=== PATIENT | female | born 1980 | race Caucasian/White ===

== ENCOUNTER 2018-08-13 16:50 | Inpatient (IN) | payer BC ==
[2018-08-13] MEDS ORDERED: Alum-Mag Hydrox-Simethicone Susp (30 mL) PO ONE (18:14)
[2018-08-13] MEDS ORDERED: Iohexol 240 (50 ml) PO ONE (18:15)
[2018-08-13] MEDS ORDERED: Alum-Mag Hydrox-Simethicone Susp (30 mL) ONE (18:49)
[2018-08-13] MEDS ORDERED: Iohexol 240 (50 ml) ONE (18:50)
--- NOTE | 2018-08-13 19:04 | ED PDOC ---
HPI: Abdomen Time Seen by Provider: 08/13/18 17:43 Chief Complaint (Nursing): Abdominal Pain Chief Complaint (Provider): Abdominal Pain History Per: Patient History/Exam Limitations: no limitations Onset/Duration Of Symptoms: Days (x2) Current Symptoms Are (Timing): Still Present Location Of Pain/Discomfort: Epigastric Associated Symptoms: denies: Fever, Nausea, Vomiting, Diarrhea, Back Pain, Urinary Symptoms Additional Complaint(s): 37 year old female with no significant past medical history presents to the ED with constant epigastric pain onset 2 days. Last night, patient went to [facility] where she had a CT and lab work done that showed no clinically significant abnormalities. She was discharged home with Tylenol for pain. Patient came to the ED today because pain is severe. She denies any radia tion of pain, nausea, vomiting, fever, urinary symptoms or diarrhea. PMD: Kavon Past Medical History Reviewed: Historical Data, Nursing Documentation, Vital Signs Vital Signs: Last Vital Signs Temp 98.7 F 08/13/18 17:00 Pulse 98 H 08/13/18 17:00 Resp 18 08/13/18 17:00 BP 138/87 08/13/18 17:00 Pulse Ox 99 08/13/18 17:00 - Medical History PMH: No Chronic Diseases - Surgical History Other surgeries: ovarian cyst surgery - Family History Family History: States: Unknown Family Hx - Allergies Allergies/Adverse Reactions: Allergies Allergy/AdvReac Type Severity Reaction Status Date / Time No Known Allergies Allergy Verified 08/13/18 17:00 Review of Systems ROS Statement: Except As Marked, All Systems Reviewed And Found Negative Constitutional: Negative for: Fever Gastrointestinal: Positive for: Abdominal Pain (epigastric). Negative for: Nausea, Vomiting, Diarrhea Physical Exam - Reviewed Nursing Documentation Reviewed: Yes Vital Signs Reviewed: Yes - Physical Exam Appears: Positive for: Non-toxic, No Acute Distress Head Exam: Positive for: ATRAUMATIC, NORMOCEPHALIC Skin: Positive for: Normal Color, Warm, Dry Eye Exam: Positive for: Normal appearance, EOMI, PERRL Cardiovascular/Chest: Positive for: Regular Rate, Rhythm. Negative for: Murmur Respiratory: Positive for: Normal Breath Sounds. Negative for: Respiratory Distress Gastrointestinal/Abdominal: Positive for: Tenderness (epigastric and RUQ ) Extremity: Positive for: Normal ROM Neurologic/Psych: Positive for: Alert, Oriented (x3) - Laboratory Results Result Diagrams: 08/14/18 04:30 08/14/18 04:30 - ECG O2 Sat by Pulse Oximetry: 99 (RA) Pulse Ox Interpretation: Normal Medical Decision Making Medical Decision Making: Time: 1811 Initial Impression: Epigastric pain Differential diagnoses include but are not limited to: Gall bladder disease, peptic ulcer disease, acute gastritis. Initial Plan: --Gallbladder US --EKG --CMP --Lipase --Urine preg --Urine dip --CBC with differentials --Lidocaine 2% 15 ml --Maalox Plus 30 ml PO Scribe Attestation: Documented by Betty Borja, acting as a scribe for Moose Guerra MD Provider Scribe Attestation: All medical record entries made by the Scribe were at my direction and personally dictated by me. I have reviewed the chart and agree that the record accurately reflects my personal performance of the history, physical exam, medical decision making, and the department course for this patient. I have also personally directed, reviewed, and agree with the discharge instructions and disposition. Disposition - Clinical Impression Clinical Impression: Acute cholecystitis - Patient ED Disposition Is Patient to be Admitted: Transfer of Care Counseled Patient/Family Regarding: Studies Performed, Diagnosis - Disposition Disposition: Transfer of Care Disposition Time: 19:00 Condition: STABLE Patient Signed Over To: Sarah Oliver
[2018-08-13 19:24] LABS: BASO # 0.1 K/uL (0.0-0.2); BASO % 0.6 % (0.0-2.0); EOS % 0.3 % (0.0-4.0); HEMOGLOBIN 14.4 g/dL (12.0-16.0); LYMPH # 2.5 K/uL (1.0-4.3); MEAN CELL VOLUME 89.6 fl (81.0-99.0); MEAN CORPUSCULAR HEMOGLOBIN 30.4 pg (27.0-31.0); MEAN CORPUSCULAR HGB CONC 33.9 g/dL (33.0-37.0); MEAN PLATELET VOLUME 7.7 fl (7.2-11.7); MONO # 0.7 K/uL (0.0-0.8); NEUT # 8.2 K/uL (1.8-7.0); NEUT % 71.1 % (50.0-75.0); RBC 4.75 Mil/uL (3.80-5.20); RED CELL DISTRIBUTION WIDTH 14.2 % (11.5-14.5); WHITE BLOOD COUNT 11.5 K/uL (4.8-10.8)
[2018-08-13 19:34] LABS: ALB/GLOB RATIO 1.1 (1.0-2.1); ALBUMIN 4.4 g/dL (3.5-5.0); ALT/SGPT 27 U/L (9-52); AST/SGOT 27 U/L (14-36); BLOOD UREA NITROGEN 9 mg/dl (7-17); CALCIUM 10.1 mg/dL (8.4-10.2); GFR NON-AFRICAN AMERICAN > 60; LIPASE 63 U/L (23-300)
--- NOTE | 2018-08-13 19:54 | ED PDOC ---
- Laboratory Results Result Diagrams: 08/13/18 19:20 08/13/18 19:20 - ECG O2 Sat by Pulse Oximetry: 99 (RA) Pulse Ox Interpretation: Normal Medical Decision Making Medical Decision Making: Time: 1899 --Patient signed out to this provider by Dr. Guerra, pending GI workup and reevaluation. If all negative, patient can be discharged. Time: 2058 US abdomen Impression: 1. Multiple small mobile gallstones at the gallbladder neck. 2. Thickened gallbladder wall, consistent with acute cholecystitis. Time: 2126 pt aware of results, agreeable to plan --Case discussed with Dr. Jacobson who advises provider to talk to Dr. Goldsmith, surgeon, who states he will see the patient. Suggested calling the surgical dental assistant. who was called. iv abx on board, npo past midnight Scribe Attestation: Documented by Betty Borja, acting as a scribe for Sarah Oliver MD Provider Scribe Attestation: All medical record entries made by the Scribe were at my direction and personally dictated by me. I have reviewed the chart and agree that the record accurately reflects my personal performance of the history, physical exam, medical decision making, and the department course for this patient. I have also personally directed, reviewed, and agree with the discharge instructions and disposition. Disposition Counseled Patient/Family Regarding: Studies Performed, Diagnosis, Need For Followup - Clinical Impression Clinical Impression: Acute cholecystitis - POA Present On Arrival: None - Disposition Disposition: Admitted as In-Patient Disposition Time: 01:00 Condition: STABLE
[2018-08-13] MEDS ORDERED: Sodium Chloride 0.9% 1,000 ML IV STA (21:16)
[2018-08-13] MEDS ORDERED: Piperacillin/Tazobact 4.5 GM in Sodium Chloride 0.9% 100 ML IVPB STA (21:26)
--- NOTE | 2018-08-13 23:51 | CP.PCM.CON ---
Addendum entered and electronically signed by Waldemar Goldsmith DO 08/14/18 14:43: Patient examined. Agree with above findings and plan of care. TO OR for laparosc opic cholecystectomy with cholangiogram since bili increased. NPO, IV ABX, informed consent obtained. Original Note: History of Present Illness - History of Present Illness History of Present Illness: GENERAL SURGERY CONSULT NOTE FOR DR. GOLDSMITH 37F with PMHx of GERD, HTN presents to the ED with abdominal pain. The pain began yesterday at 8:30. She thought it was heartburn initially so she took Nexium without any relief. She vomited around midnight so she went to [facility] where she reportedly had a CT with IV contrast and bloodwork. She was told everything was find and discharged home. This morning, the pain continued so she went to [facility] where she was given Carafate which didn't relieve her symptoms so she came to [facility]. The pain is located in the RUQ/epigastric area. She denies diarrhea. States pain occurs a few hours after eating. PMHx: GERD, HTN (previously on metoprolol) Surgeries: laparoscopic ovarian cyst removal ALlergies: none Medications: nexium PRN Social history: denies etoh, tobacco use or illicit drug use Review of Systems - Review of Systems All systems: reviewed and no additional remarkable complaints except (as per HPI) Past Patient History - Past Social History Smoking Status: Never Smoked - MUSCULOSKELETAL/RHEUMATOLOGICAL Hx Falls: No - PSYCHIATRIC Hx Substance Use: No - SURGICAL HISTORY Hx Surgeries: Yes Other/Comment: ovarian cyst removal - ANESTHESIA Hx Anesthesia: No Hx Anesthesia Reactions: No Hx Malignant Hyperthermia: No Meds Allergies/Adverse Reactions: Allergies Allergy/AdvReac Type Severity Reaction Status Date / Time No Known Allergies Allergy Verified 08/13/18 17:00 - Medications Medications: Current Medications Lactated Ringer's (Lactated Ringer's) 1,000 mls @ 125 mls/hr IV .Q8H DAVION Piperacillin Sod/Tazobactam (Sod 3.375 gm/ Sodium Chloride) 100 mls @ 100 mls/hr IVPB Q6 DAVION; Protocol Morphine Sulfate (Morphine) 4 mg IVP Q4 PRN PRN Reason: Pain, moderate (4-7) Ondansetron HCl (Zofran Inj) 4 mg IVP Q4 PRN PRN Reason: Nausea/Vomiting Physical Exam - Constitutional Appears: Non-toxic, No Acute Distress - Head Exam Head Exam: ATRAUMATIC, NORMAL INSPECTION - Eye Exam Eye Exam: EOMI, Normal appearance - Respiratory Exam Respiratory Exam: NORMAL BREATHING PATTERN. absent: Respiratory Distress - Cardiovascular Exam Cardiovascular Exam: +S1, +S2 - GI/Abdominal Exam GI & Abdominal Exam: Soft, Tenderness (tender in RUQ>epigastric). absent: Distended, Firm, Guarding, Rebound, Rigid Additional comments: +[place] sign - Neurological Exam Neurological exam: Alert, CN II-XII Intact, Oriented x3 - Psychiatric Exam Psychiatric exam: Normal Affect, Normal Mood - Skin Skin Exam: Dry, Normal Color, Warm Results - Vital Signs Recent Vital Signs: Last Vital Signs Temp 98.2 F 08/13/18 22:44 Pulse 77 08/13/18 22:44 Resp 18 08/13/18 22:44 BP 129/84 08/13/18 22:44 Pulse Ox 94 L 08/13/18 22:44 - Labs Result Diagrams: 08/13/18 19:20 08/13/18 19:20 Labs: Laboratory Results - last 24 hr 08/13/18 08/13/18 19:20 19:20 WBC 11.5 H RBC 4.75 Hgb 14.4 Hct 42.5 MCV 89.6 MCH 30.4 MCHC 33.9 RDW 14.2 Plt Count 372 MPV 7.7 Neut % (Auto) 71.1 Lymph % (Auto) 22.0 [place] % (Auto) 6.0 Eos % (Auto) 0.3 Baso % (Auto) 0.6 Neut # (Auto) 8.2 H Lymph # (Auto) 2.5 [place] # (Auto) 0.7 Eos # (Auto) 0.0 Baso # (Auto) 0.1 Sodium 139 Potassium 4.7 Chloride 99 Carbon Dioxide 31 H Anion Gap 14 BUN 9 Creatinine 0.5 L Est GFR ( Amer) > 60 Est GFR (Non-Af Amer) > 60 Random Glucose 112 H Calcium 10.1 Total Bilirubin 0.6 AST 27 ALT 27 Alkaline Phosphatase 79 Total Protein 8.4 H Albumin 4.4 Globulin 4.0 H Albumin/Globulin Ratio 1.1 Lipase 63 Assessment & Plan - Assessment and Plan (Free Text) Assessment: 37F with PMHx of GERD, HTN presents with abdominal pain, found to have symptomatic cholelithiasis/possible cholecystitis - Afebrile, VSS - WBC 11.5, bilirubin, LFTs, lipase all WNL - US: multiple small mobile gallstones at neck of gallbladder, gallbladder wall 4.18mm - Plan for OR tomorrow AM for lap anneliese - NPO past midnight - IV fluids - Zosyn - Morphine & Zofran PRN - Discussed plan with Dr. Rupal Bernardo PGY-4
[2018-08-14] MEDS: Lactated Ringer's 1,000 ML IV SCH (00:15)
[2018-08-14] MEDS: Piperacillin/Tazobact 3.375 GM in Sodium Chloride 0.9% 100 ML IVPB SCH ×4 (03:21→21:14)
[2018-08-14 05:24] LABS: BASO % 0.4 % (0.0-2.0); EOS % 0.4 % (0.0-4.0); HEMOGLOBIN 13.9 g/dL (12.0-16.0); LYMPH # 1.9 K/uL (1.0-4.3); MEAN CORPUSCULAR HEMOGLOBIN 30.4 pg (27.0-31.0); MEAN CORPUSCULAR HGB CONC 33.8 g/dL (33.0-37.0); MEAN PLATELET VOLUME 7.7 fl (7.2-11.7); MONO # 0.7 K/uL (0.0-0.8); MONO % 8.3 % (0.0-10.0); NEUT # 5.7 K/uL (1.8-7.0); NEUT % 67.9 % (50.0-75.0); RBC 4.56 Mil/uL (3.80-5.20); RED CELL DISTRIBUTION WIDTH 14.4 % (11.5-14.5); WHITE BLOOD COUNT 8.3 K/uL (4.8-10.8)
[2018-08-14 05:27] LABS: PROTHROMBIN TIME 11.3 Seconds (9.8-13.1)
[2018-08-14 05:30] LABS: PARTIAL THROMBOPLASTIN TIME 31.2 Seconds (25.6-37.1)
[2018-08-14 05:37] LABS: ALB/GLOB RATIO 1.1 (1.0-2.1); ALBUMIN 3.9 g/dL (3.5-5.0); ALT/SGPT 42 U/L (9-52); AST/SGOT 33 U/L (14-36); BLOOD UREA NITROGEN 9 mg/dl (7-17); CALCIUM 8.6 mg/dL (8.4-10.2); GFR NON-AFRICAN AMERICAN > 60
--- NOTE | 2018-08-14 07:01 | CARD ---
APPROVED REPORT Date of service: 08/13/2018 EKG Measurement Heart [id number] VT 144P-4 [id number] <Conclusion> Normal sinus rhythm Normal ECG
--- NOTE | 2018-08-14 11:48 | US ---
Date of service: 08/13/2018 HISTORY: Right upper quadrant, Epigastric pain 2 days duration COMPARISON: 01/21/2014 TECHNIQUE: Sonographic evaluation of the right upper quadrant of the abdomen. FINDINGS: LIVER: Measures 16.9 cm in length. Patent portal vein. Portal venous flow: Hepatopetal. Unremarkable echogenicity of the liver parenchyma. GALLBLADDER: Cholelithiasis, gallbladder wall edema and positive sonographic Vo's sign. COMMON BILE DUCT: Measures 4.0 mm. No stones. No dilatation. PANCREAS: Unremarkable as visualized. No mass. No ductal dilatation. RIGHT KIDNEY: Measures 5.9 x 11.6 cm in length. Normal echogenicity. No calculus, mass, or hydronephrosis. AORTA: No aneurysmal dilatation. IVC: Unremarkable. OTHER FINDINGS: None . IMPRESSION: Cholelithiasis/presumptive evidence including gallbladder wall edema and positive sonographic Vo sign for acute cholecystitis. Concordant results (preliminary interpretation) provided by [employer]. Procedure Completed: 20:03 Preliminary Report: Dictated and Authenticated: 20:59. Final Interpretation: 11:46. August 14, 2018
[2018-08-14] MEDS ORDERED: Rocuronium 10 mg/ml (5 ml) ONE (12:48)
[2018-08-14] MEDS ORDERED: Succinylcholine 200 mg/10 ml Inj IV ONE (12:48)
[2018-08-14] MEDS ORDERED: Midazolam 2 MG/2 ML VIAL ONE (12:48)
[2018-08-14] MEDS ORDERED: Propofol 10 mg/ml Inj (20 ML) ONE (12:48)
[2018-08-14] MEDS ORDERED: Lidocaine 4% (Laryng-O-Jet) Kit MM ONE (12:49)
[2018-08-14] MEDS ORDERED: Neostigmine 1:1000 (1 mg/ml) Inj ONE (12:49)
[2018-08-14] MEDS ORDERED: Bupivacaine HCl 0.5% PF (30 ml) Inj ONE (13:23)
[2018-08-14] MEDS ORDERED: ceFAZolin IV 1 gm in Dextrose 0 GM/0 ML BAG IVPB ONE (13:23)
[2018-08-14] MEDS ORDERED: Lidocaine 2% PF (10 ml) Amp ONE (13:23)
[2018-08-14] MEDS ORDERED: Iohexol 240 200 ML ONE (13:29)
[2018-08-14] MEDS ORDERED: Lactated Ringer's 1,000 ML IV ONE ×2 (14:40→15:51)
[2018-08-14] MEDS ORDERED: Bupivacaine 0.5% Inj(30mL) IJ ONE (15:14)
[2018-08-14] MEDS ORDERED: Iohexol 240 200 ML IJ ONE (15:15)
[2018-08-14] MEDS ORDERED: HYDROmorphone 0.5 mg/0.5 ml ISec IVP PRN (15:55)
--- NOTE | 2018-08-14 16:00 | PCM.SURG1 ---
Surgeon's Initial Post Op Note - Surgeon's Notes Surgeon: Rupal Bug Trimmer: Michael PGY4 Type of Anesthesia: General Endo, Local Pre-Operative Diagnosis: Cholecystitis Operative Findings: Acutely inflamed gallbladder Post-Operative Diagnosis: same Operation Performed: laparoscopic cholecystectomy with attempted IOC Specimen/Specimens Removed: gallbladder Estimated Blood Loss: EBL {In ML}: 15 Blood Products Given: N/A Drains Used: No Drains Post-Op Condition: Good Date of Surgery/Procedure: 08/14/18 Time of Surgery/Procedure: 16:02
--- NOTE | 2018-08-15 03:03 | HP ---
HISTORY OF PRESENT ILLNESS: This is a 37-year-old female with history of hypertension, not on any medications, presented to emergency room for the second time this week with upper abdominal pain, nausea. The patient was in [facility] where she was evaluated and CAT scan was done and was told that she did not have any intra-abdominal pathology. The patient continued to have abdominal pain and nausea and she presented to emergency room of [facility] with the abdominal pain. The patient had an abdominal ultrasound done that showed cholelithiasis with presumptive evidence including gallbladder wall edema and positive sonographic Vo's sign for acute cholecystitis. The patient was admitted for further management. ALLERGIES: NO KNOWN ALLERGY. MEDICATIONS: None. PAST MEDICAL HISTORY: Hypertension, not on any medication. FAMILY HISTORY: Noncontributory. SOCIAL HISTORY: No history of smoking, EtOH, or substance abuse. REVIEW OF SYSTEMS: Other review of systems is negative. PHYSICAL EXAMINATION: GENERAL: The patient is not in any cardiopulmonary distress. VITAL SIGNS: Blood pressure 149/81, temperature 98.2, respiratory rate 18, and pulse 68. HEENT: Pupils equal, reactive to light. Normal-appearing mucosa of the conjunctivae, oropharynx and nasal membrane mucosa. NECK: Supple. No JVD. No carotid bruit. No lymph node. No thyromegaly. CARDIOPULMONARY: PMI not localized. S1, S2. No additional sounds. CHEST: Lungs, bilateral symmetrical expansion. Good air exchange. No rales, no rhonchi. ABDOMEN: There are positive bowel sounds and positive Vo's sign in the right upper quadrant. No organomegaly. No masses. EXTREMITIES: No cyanosis, no clubbing, no edema. ECLECTIC DOCTOR: Alert, awake, oriented x3. No neurological deficit could be appreciated. ASSESSMENT: Acute cholecystitis. PLAN: Surgical consult and IV fluid with supplement electrolytes and follow recommendations of surgery. Kristy Jacobson MD
[2018-08-15] MEDS: Piperacillin/Tazobact 3.375 GM in Sodium Chloride 0.9% 100 ML IVPB SCH ×2 (03:06→09:10)
[2018-08-15] MEDS ORDERED: Oxycodone/Acetaminophen 5/325 mg Tab PO PRN ×2 (05:02)
[2018-08-15 06:18] LABS: BASO % 0.4 % (0.0-2.0); EOS % 0.3 % (0.0-4.0); HEMOGLOBIN 13.3 g/dL (12.0-16.0); LYMPH # 1.3 K/uL (1.0-4.3); LYMPH % 16.8 % (20.0-40.0); MEAN CORPUSCULAR HEMOGLOBIN 31.1 pg (27.0-31.0); MEAN CORPUSCULAR HGB CONC 34.5 g/dL (33.0-37.0); MEAN PLATELET VOLUME 7.7 fl (7.2-11.7); MONO # 0.5 K/uL (0.0-0.8); MONO % 6.9 % (0.0-10.0); NEUT # 5.9 K/uL (1.8-7.0); NEUT % 75.6 % (50.0-75.0); RBC 4.29 Mil/uL (3.80-5.20); RED CELL DISTRIBUTION WIDTH 14.6 % (11.5-14.5); WHITE BLOOD COUNT 7.8 K/uL (4.8-10.8)
[2018-08-15 06:20] LABS: ALBUMIN 3.8 g/dL (3.5-5.0); ALT/SGPT 164 U/L (9-52); AST/SGOT 155 U/L (14-36); BLOOD UREA NITROGEN 8 mg/dl (7-17); CALCIUM 8.8 mg/dL (8.4-10.2); GFR NON-AFRICAN AMERICAN > 60
[2018-08-15 08:08] VITALS: BP 114/76; PULSE 91; RESP 20; TEMP 98.3; O2SAT 96
--- NOTE | 2018-08-15 08:09 | OP ---
PROCEDURE DATE: 08/14/18 ENGINEER SPECIALIST: Charles Rodriguez DO, PGY-4 SURGEON: Waldemar Goldsmith DO PREOPERATIVE DIAGNOSIS: Cholecystitis. POSTOPERATIVE DIAGNOSIS: Cholecystitis. PROCEDURE: Laparoscopic cholecystectomy with attempted intraoperative cholangiogram. INDICATIONS: This is a 37-year-old female who came in with right upper quadrant pain. On workup, the patient was found to have cholecystitis based on the ultrasound findings. Laparoscopic cholecystectomy was elected. DESCRIPTION OF PROCEDURE: The patient was brought to the operating room and placed in supine position. General anesthesia was induced. All appropriate monitoring devices were in place. A time-out was then completed to verifying correct patient and procedure. The abdomen was then prepped and draped in the usual sterile fashion. A vertical incision was made over the umbilicus. The fascia was then elevated and incised. Peritoneum was elevated and incised. Entry into the peritoneum was confirmed digitally. No bowel was noted to be in vicinity of the incision. An anchoring suture of 0 Vicryl was then placed, and Rox cannula was inserted under direct visualization. Sutures were then anchored around the cannula. The abdomen was insufflated with carbon dioxide to a pressure of about 15 mmHg. The patient tolerated the insufflation well. Laparoscope was then inserted into the abdomen. No injury to the initial trocar placement was noted. Additional trocars were then inserted in the following located 5-mm trocar in the right epigastrium and three 5-mm trocars were inserted along the right costal margin. The abdomen was inspected. The gallbladder was found to be acutely inflamed and edematous. The table was placed in the reverse Trendelenburg position with the right side up. The dome of the gallbladder was grasped with an atraumatic grasper and passed through the lateral port and retracted over the dome of the liver. The infundibulum was also grasped with an atraumatic grasper through the port, retracted towards the right lower quadrant. exposed the Calot's triangle. Peritoneum over the gallbladder and infundibulum were then incised. The cystic duct and cystic artery were identified circumferentially and dissected. neck of the gallbladder. Ritesh was made in the cystic duct. Multiple attempts were made passing eventually aborted as carefully passed the catheter. The cystic duct was then doubly clipped and divided close to the gallbladder. The same was performed to the cystic artery. The gallbladder was then dissected from its peritoneal attachments by electrocautery. Hemostasis was checked. The gallbladder was removed using the EndoCatch through the umbilicus. The gallbladder was passed off the table. The specimen of the gallbladder fossa was then copiously irrigated with saline and hemostasis was obtained. There was no evidence of bleeding from the gallbladder fossa or cystic artery. No leakage of bile from the cystic duct. The secondary trocar was then removed under direct vision. There was no bleeding noted at the trocar site. The laparoscope was withdrawn. The umbilical trocar was removed. The abdomen was allowed to coapt the fascia. The umbilical site was closed with 0 Vicryl and a [id number] stitch. The skin was closed with subcuticular sutures using 4-0 Monocryl and Dermabond. The patient tolerated the procedure well and was taken to the PACU in stable condition. Charles Rodriguez DO Waldemar Goldsmith DO
[2018-08-15] MEDS: Lactated Ringer's 1,000 ML IV SCH (08:38)
--- NOTE | 2018-08-15 11:48 | CP.PCM.PN ---
Subjective - Date & Time of Evaluation Date of Evaluation: 08/15/18 Time of Evaluation: 11:42 - Subjective Subjective: Surgery: Dr. Goldsmith Pt seen and examined. No acute events overnight. Pain controlled. Decreased appetite, but tolerating diet. Ambulating w. out difficulty. Objective - Vital Signs/Intake and Output Vital Signs (last 24 hours): Temp Pulse Resp BP Pulse Ox 98.3 F 91 H 20 114/76 96 08/15/18 08:08 08/15/18 08:08 08/15/18 08:08 08/15/18 08:08 08/15/18 08:08 - Medications Medications: Current Medications Hydromorphone HCl (Dilaudid) 0.5 mg IVP Q15M PRN PRN Reason: Pain, moderate (4-7) Last Admin: 08/14/18 16:05 Dose: 0.5 mg Piperacillin Sod/Tazobactam (Sod 3.375 gm/ Sodium Chloride) 100 mls @ 100 mls/hr IVPB Q6 DAVION; Protocol Last Admin: 08/15/18 09:10 Dose: 100 mls/hr Ondansetron HCl (Zofran Inj) 4 mg IVP Q4 PRN PRN Reason: Nausea/Vomiting Last Admin: 08/15/18 09:10 Dose: 4 mg Oxycodone/Acetaminophen (Percocet 5/325 Mg Tab) 1 tab PO Q4 PRN PRN Reason: Pain, moderate (4-7) Stop: 08/18/18 05:03 Last Admin: 08/15/18 09:15 Dose: 1 tab Oxycodone/Acetaminophen (Percocet 5/325 Mg Tab) 2 tab PO Q4 PRN PRN Reason: Pain, severe (8-10) Stop: 08/18/18 05:03 - Labs Labs: 08/15/18 05:35 08/15/18 05:35 PT 11.3 Seconds (9.8-13.1) 08/14/18 04:30 INR 1.0 08/14/18 04:30 APTT 31.2 Seconds (25.6-37.1) 08/14/18 04:30 - Constitutional Appears: Non-toxic, No Acute Distress - Eye Exam Eye Exam: EOMI - ENT Exam ENT Exam: Mucous Membranes Moist - Neck Exam Neck Exam: Full ROM - Respiratory Exam Respiratory Exam: NORMAL BREATHING PATTERN. absent: Accessory Muscle Use, Respiratory Distress - GI/Abdominal Exam GI & Abdominal Exam: Soft, Tenderness (arnold-incisional ). absent: Distended, Firm, Guarding, Rigid, Rebound - Extremities Exam Extremities Exam: absent: Calf Tenderness, Pedal Edema - Neurological Exam Neurological Exam: Alert, Awake, Oriented x3 - Psychiatric Exam Psychiatric exam: Normal Affect, Normal Mood Assessment and Plan - Assessment and Plan (Free Text) Assessment: 37F w. cholecystitis, s/p lap anneliese, POD #1 -Clear for D/C from surgical standpoint -Ibuprofen/Tylenol for pain -F/U in office in 1-2 weeks -Return to ED if symptoms worsen -D/W attending Zemaitis PGY4
--- NOTE | 2018-08-16 22:19 | DS ---
REASON FOR ADMISSION: This is a 37-year-old female with a history of abdominal pain for one-week duration. The patient had an outpatient pain management for this abdominal pain. COURSE OF HOSPITALIZATION: The patient was admitted to medical floor after she was found to have cholelithiasis with possible thickening of the wall of the gallbladder. The patient underwent cholecystectomy by Dr. Goldsmith, and she was discharged home in a stable condition and will follow with Surgery and with Dr. Jacobson. FINAL DIAGNOSES: Acute cholecystitis, status post cholecystectomy. [facility] [place] [facility] # [id number]
== END 2018-08-15 15:22 | disposition home or self-care (01) | DRG 419 ==
LOC: H.ER 16:50 → H.ERHOLD 21:27 → H.MEDSURG1 22:27
PROVIDERS: ADMIT Internal Medicine; ATTEND Internal Medicine
PROC: 0FT44ZZ Resection of Gallbladder, Percutaneous Endoscopic Approach (ICD-10-PCS; principal; 2018-08-14 14:00)
DX: K80.00 Calculus of gallbladder with acute cholecystitis without obstruction (principal); K21.9 Gastro-esophageal reflux disease without esophagitis